=== PATIENT | male | born 1965 | race Caucasian/White ===

== ENCOUNTER → 2018-12-13 | Outpatient (CLI) | payer OTHER ==
[~2018-12-13] MED LIST: AMARYL2 MG PO; ASPIRIN EC81 M1 PO; CHANTIX1 MG PO; CHOLESTEROL; CRESTOR10 MG PO; GLUCOPHAGE500 MG PO; LISINOPRIL5 MG PO; NORCO 5-325 TA1 EACH PO; PRILOSEC 20 MG20 MG PO; ULTRAM 50MG TAB50 MG PO
== END ==
LOC: M.RAD 09:35
DX: M79.671 Pain in right foot (principal); M79.672 Pain in left foot; R05 Cough

== ENCOUNTER 2020-07-20 09:50 | Emergency (ER) | payer OTHER ==
[~2020-07-20] VITALS: Ht 180.3 cm; Wt 72.6 kg
[2020-07-20] MEDS ORDERED: XANAX1 MG PO (10:08)
[2020-07-20 10:28] LABS: URINE BILIRUBIN NEGATIVE (Negative); URINE BLOOD NEGATIVE (Negative); URINE CLARITY CLEAR; URINE COLOR YELLOW; URINE GLUCOSE-RANDOM NEGATIVE (Negative); URINE KETONES NEGATIVE (Negative); URINE LEUKOCYTES-REFLEX NEGATIVE (Negative); URINE NITRITE-REFLEX NEGATIVE (Negative); URINE PROTEIN NEGATIVE (Negative); URINE SPECIFIC GRAVITY 1.015 (1.005-1.030); URINE UROBILINOGEN 0.2 E.U./dl (0.2-1.0)
[2020-07-20 10:48] LABS: ABSOLUTE BASOPHILS 0.1 thou/uL (0.0-0.2); ABSOLUTE EOSINOPHILS 0.2 thou/uL (0.0-0.7); ABSOLUTE LYMPHOCYTES 2.6 thou/uL (0.8-5.3); ABSOLUTE MONOCYTES 0.5 thou/uL (0.0-1.2); BASOPHILS 1.4 %; EOSINOPHILS 3.3 %; HEMATOCRIT 48.1 % (42.0-52.0); HEMOGLOBIN 17.3 gm/dL (14.0-18.0); LYMPHOCYTES 34.8 %; MCH 31.8 pg (26.0-34.0); MCHC 35.9 g/dL (28.0-37.0); MCV 88.5 fL (80.0-100.0); MONOCYTES 6.7 %; MPV 7.1 fl. (7.2-11.1); NUCLEATED RBCS 0 /100WBC; PLATELET COUNT* 217 thou/uL (150-400); POLYS 53.8 %; RBC 5.43 mil/uL (4.50-6.00); RDW-CV 13.1 % (10.5-14.5); WBC 7.4 thou/uL (4.0-11.0)
[2020-07-20 11:07] LABS: CALCIUM 8.8 mg/dL (8.5-10.1); CREATININE 0.9 mg/dL (0.6-1.3); POTASSIUM 4.3 mmol/L (3.5-5.1)
[2020-07-20 11:11] LABS: ALBUMIN 3.9 g/dL (3.4-5.0); TOTAL BILIRUBIN 0.3 mg/dL (<0.1-1.0); TOTAL PROTEIN 7.5 g/dL (6.4-8.2)
[2020-07-20] MEDS ORDERED: FLOMAX0.4 MG PO (12:31)
[2020-07-20] MEDS ORDERED: IBUPROFEN 800800 M1 PO (12:31)
[2020-07-20] MEDS ORDERED: PERCOCET PO (12:31)
[2020-07-20 12:48] VITALS: BP 160/88
== END 2020-07-20 12:48 | disposition home or self-care (01) ==
LOC: M.ERS 09:50
PROVIDERS: Emergency Medicine Emergency Medical Services; Nurse Practitioner Family
DX: I71.4 Abdominal aortic aneurysm, without rupture (principal); N20.1 Calculus of ureter; E78.5 Hyperlipidemia, unspecified; F17.210 Nicotine dependence, cigarettes, uncomplicated; Z79.899 Other long term (current) drug therapy; Z88.6 Allergy status to analgesic agent

== ENCOUNTER 2020-07-29 12:08 | Emergency (ER) | payer OTHER ==
[~2020-07-29] VITALS: Ht 180.3 cm; Wt 72.6 kg
[~2020-07-29 12:08] MED LIST changes: +FLOMAX0.4 MG PO; +IBUPROFEN 800800 M1 PO; +PERCOCET PO; +XANAX1 MG PO
[2020-07-29 12:43] LABS: URINE BILIRUBIN NEGATIVE (Negative); URINE BLOOD NEGATIVE (Negative); URINE CLARITY CLEAR; URINE COLOR YELLOW; URINE GLUCOSE-RANDOM NEGATIVE (Negative); URINE KETONES NEGATIVE (Negative); URINE LEUKOCYTES-REFLEX NEGATIVE (Negative); URINE NITRITE-REFLEX NEGATIVE (Negative); URINE PROTEIN NEGATIVE (Negative); URINE UROBILINOGEN 0.2 E.U./dl (0.2-1.0)
[2020-07-29 12:43] LABS: ABSOLUTE BASOPHILS 0.1 thou/uL (0.0-0.2); ABSOLUTE EOSINOPHILS 0.3 thou/uL (0.0-0.7); ABSOLUTE LYMPHOCYTES 2.4 thou/uL (0.8-5.3); ABSOLUTE MONOCYTES 0.6 thou/uL (0.0-1.2); ABSOLUTE NEUTROPHILS 6.1 thou/uL (1.6-8.1); HEMATOCRIT 49.3 % (42.0-52.0); HEMOGLOBIN 17.3 gm/dL (14.0-18.0); MCH 30.9 pg (26.0-34.0); MCV 88.3 fL (80.0-100.0); MONOCYTES 5.8 %; MPV 7.5 fl. (7.2-11.1); NUCLEATED RBCS 0 /100WBC; PLATELET COUNT* 233 thou/uL (150-400); POLYS 65.2 %; RBC 5.58 mil/uL (4.50-6.00); RDW-CV 13.5 % (10.5-14.5); WBC 9.4 thou/uL (4.0-11.0)
[2020-07-29 12:52] LABS: CALCIUM 8.7 mg/dL (8.5-10.1); CREATININE 0.9 mg/dL (0.6-1.3); POTASSIUM 4.3 mmol/L (3.5-5.1)
[2020-07-29 13:05] LABS: TOTAL BILIRUBIN 0.4 mg/dL (<0.1-1.0); TOTAL PROTEIN 7.4 g/dL (6.4-8.2)
[2020-07-29] MEDS ORDERED: TRAMADOL 50 MG50 MG PO (13:49)
[2020-07-29 13:58] VITALS: BP 139/81
== END 2020-07-29 13:59 | disposition home or self-care (01) ==
LOC: M.ERS 12:08
PROVIDERS: Nurse Practitioner Family
DX: R10.9 Unspecified abdominal pain (principal); Z20.828 Contact with and (suspected) exposure to other viral communicable diseases; R11.0 Nausea; F17.210 Nicotine dependence, cigarettes, uncomplicated; Z79.899 Other long term (current) drug therapy; Z88.6 Allergy status to analgesic agent

== ENCOUNTER 2021-03-02 11:15 | Emergency (ER) | payer OTHER ==
[~2021-03-02] VITALS: Ht 180.3 cm; Wt 72.6 kg
[~2021-03-02 11:15] MED LIST changes: +TRAMADOL 50 MG50 MG PO
[2021-03-02] MEDS ORDERED: SUPER THERAVIT1 EACH PO (11:31)
[2021-03-02] MEDS ORDERED: VITAMIN D-40010 MCG PO (11:31)
[2021-03-02] MEDS ORDERED: PRILOSEC OTC20 MG PO (11:32)
[2021-03-02] MEDS ORDERED: GLUCOPHAGE1000 MG PO (11:33)
[2021-03-02] MEDS ORDERED: INSULIN (11:33)
[2021-03-02 12:59] VITALS: BP 121/65
== END 2021-03-02 13:00 | disposition home or self-care (01) ==
LOC: M.ERS 11:15
DX: M25.462 Effusion, left knee (principal); K21.9 Gastro-esophageal reflux disease without esophagitis; E78.5 Hyperlipidemia, unspecified; Z90.49 Acquired absence of other specified parts of digestive tract; Z88.5 Allergy status to narcotic agent; F17.210 Nicotine dependence, cigarettes, uncomplicated

== ENCOUNTER → 2021-03-16 | Outpatient (CLI) | payer OTHER ==
[~2021-03-16] MED LIST changes: +GLUCOPHAGE1000 MG PO; +INSULIN; +PRILOSEC OTC20 MG PO; +SUPER THERAVIT1 EACH PO; +VITAMIN D-40010 MCG PO
== END ==
LOC: M.MRI 13:11
PROVIDERS: ATTEND Internal Medicine
DX: S76.112A Strain of left quadriceps muscle, fascia and tendon, initial encounter (principal); S83.242A Other tear of medial meniscus, current injury, left knee, initial encounter; X58.XXXA Exposure to other specified factors, initial encounter; Y93.89 Activity, other specified; Y92.89 Other specified places as the place of occurrence of the external cause; Y99.8 Other external cause status